=== PATIENT | male | born 1960 | race Caucasian/White ===

== ENCOUNTER 2018-05-23 10:38 | Day surgery (SDC) | payer BC ==
[~2018-05-23 10:38] MED LIST: ACETAMINOPHEN 1,000 MG/100 ML BTL IV ONE
[2018-05-23] MEDS ORDERED: FENTANYL PF 100MCG/2ML VIAL IV ONE (10:39)
[2018-05-23] MEDS ORDERED: LIDOCAINE 2% MDV (20MG/ML) 20ML VIAL IV ONE (10:39)
[2018-05-23] MEDS ORDERED: MIDAZOLAM HCL 2MG/2ML VIAL IV ONE (10:39)
[2018-05-23] MEDS ORDERED: DEXAMETHASONE 4 MG/ML 1ML VIAL IVP ONE (10:39)
[2018-05-23] MEDS ORDERED: DESFLURANE 240 ML BTL INH ONE (10:39)
[2018-05-23] MEDS ORDERED: KETOROLAC 30 MG/ML VIAL IVP ONE (10:39)
[2018-05-23] MEDS ORDERED: BUPIVACAINE 0.25% W/EPI MPF 30ML VIAL IVP ONE (10:39)
[2018-05-23] MEDS ORDERED: ONDANSETRON HCL IV 4 MG/2 ML VIAL IVP ONE (10:39)
[2018-05-23] MEDS ORDERED: HYDROCODONE/APAP 5/325MG TABLET PO ONE (10:39)
[2018-05-23] MEDS ORDERED: PROPOFOL 10 MG/ML VIAL IV ONE (10:39)
--- NOTE | 2018-05-24 08:30 | Operative Note ---
DATE OF SURGERY: 05/23/2018 Surgeon: Andrew Teixeira DO PREOPERATIVE DIAGNOSES: 1. Torn medial meniscus of the left knee. 2. Chondromalacia of the left knee. 3. Synovitis of the left knee. POSTOPERATIVE DIAGNOSES: 1. Torn medial meniscus of the left knee. 2. Medial mid patella plica, left knee. 3. Synovitis, left knee. 4. Chondromalacia of medial femoral condyle, lateral femoral condyle, and patella, left knee. OPERATION: 1. Arthroscopic partial medial meniscectomy, left knee. 2. Arthroscopic resection of medial mid patella plica, left knee. 3. Arthroscopic partial synovectomy medial compartment of left knee. 4. Arthroscopic chondroplasty of medial femoral condyle, lateral femoral condyle, and patella, left knee. DESCRIPTION OF PROCEDURE: This 58-year-old male was taken to the operating room and placed in the supine position on the operating room table where general anesthesia was induced. The left lower extremity was elevated, exsanguinated, and the tourniquet inflated to 300 mmHg. Arthroscopic knee mcdonnell applied. Left knee prepped with Hibiclens and draped in the usual sterile fashion. An inferolateral portal was established for the 4 mm arthroscope, and initial evaluation of the joint demonstrated grade 2 chondromalacia of the median ridge of the patella with loose fragments of articular cartilage being present there. Through an inferomedial portal, chondroplasty was performed to stabilize the articular cartilage. The trochlea, however, appeared normal. The patient demonstrated a medial mid patella plica which was resected with the rotating shaver. We then entered the medial compartment, and severe damage to the medial femoral condyle was present with severe grade 3 changes noted throughout the entire articulating surface from the meniscal rest all the way around to as far back posteriorly as we could see with loose fragments of articular cartilage being present there. Chondroplasty was performed to stabilize the articular cartilage. We then identified 2 tears in the medial meniscus; one at the root and a second of the body with horizontal cleavage components. We then utilized the basket forceps and rotating shaver to resect the tear of the body and extend it back to the root tear, which was debrided both with a rotating shaver and Arthrocare wand. We then re-probed the medial meniscus to confirm it had been restored to stable configuration. The articular cartilage in the meniscus medially was then re-probed and confirmed to be stable. The intracondylar notch was examined and found to be normal. The lateral compartment was entered, and probing of the lateral meniscus did not reveal any pathology. Mild grade 2 chondromalacia of the center of the weightbearing surface of the lateral femoral condyle was present. This was approximately 1.5 cm in greatest dimension. No loose flaps of articular cartilage were present there. Mild debridement of the "crabmeat" type appearance of the cartilage was performed there. The joint was then copiously irrigated and suctioned. The instruments were removed. The portals infiltrated with 0.25% Marcaine with epinephrine. Because of some superficial bleeding, 2 stitches of 4-0 nylon suture were placed in the arthroscopic puncture sites. Sterile dressings applied and the patient taken to the recovery room in satisfactory condition. GROSS PATHOLOGY: This patient demonstrated advanced degenerative disease in the medial compartment with severe grade changes noted in the medial femoral condyle. In addition, 2 tears in the medial meniscus were present; a root tear present posteriorly as well as a horizontal cleavage type of tear of the posterior horn was identified. There was grade 2 chondromalacia of the patella and a medial mid patella plica. There was synovitis in the medial compartment, and arthroscopic debridement of the synovium in the medial compartment was also performed. PRINCE
== END 2018-05-23 12:40 | disposition home or self-care (01) ==
LOC: SUR 10:38
PROVIDERS: ATTEND Orthopaedic Surgery
DX: S83.242A Other tear of medial meniscus, current injury, left knee, initial encounter (principal); M67.52 Plica syndrome, left knee; M65.862 Other synovitis and tenosynovitis, left lower leg; M22.42 Chondromalacia patellae, left knee; I10 Essential (primary) hypertension; E78.00 Pure hypercholesterolemia, unspecified; E03.9 Hypothyroidism, unspecified
CPT/HCPCS: 93005; J1885; J2405